=== PATIENT | male | born 1955 | race Two or more races ===

== ENCOUNTER 2018-08-12 11:47 | Inpatient (IN) | payer MEDICAID ==
[~2018-08-12] VITALS: Ht 177.8 cm; Wt 108.0 kg
[2018-08-12 11:47] VITALS: BP_SYST 131
[2018-08-12] MEDS ORDERED: ONDANSETRON HCL 4 MG/2 ML VIAL IVP ONE (12:00)
[2018-08-12] MEDS ORDERED: MORPHINE 4 MG/ML INJ. SYRINGE IVP ONE (12:00)
[2018-08-12] MEDS ORDERED: NACL 0.9% 1,000 ML IV ONE ×2 (12:00→15:15)
[2018-08-12 12:41] LABS: BASOPHILS % (AUTO) 0.3 % (0.0-2.0); EOSINOPHILS # (AUTO) 0.3 K/uL (0.0-0.4); EOSINOPHILS % (AUTO) 5.8 % (0.0-4.0); HEMATOCRIT 45.9 % (36-54); HEMOGLOBIN 14.7 g/dL (14.0-18.0); LYMPHOCYTES # (AUTO) 1.4 K/uL (1.0-5.5); LYMPHOCYTES % (AUTO) 25.7 % (20.5-51.5); MEAN CORPUSCULAR HEMOGLOBIN 27 pg (27-31); MEAN CORPUSCULAR HGB CONC 32 % (32-36); MEAN CORPUSCULAR VOLUME 84 fL (79.0-98.0); MONOCYTES # (AUTO) 0.3 K/uL (0.0-1.0); MONOCYTES % (AUTO) 6.1 % (1.7-9.3); NEUTROPHILS # (AUTO) 3.3 K/uL (1.8-7.7); NEUTROPHILS % (AUTO) 62.1 % (40.0-70.0); RED BLOOD CELL COUNT(AUTO) 5.44 MIL/uL (4.2-6.2); RED CELL DISTRIBUTION WIDTH 13.4 % (9.0-15.0); WHITE BLOOD COUNT (AUTO) 5.3 K/uL (4.8-10.8)
[2018-08-12] MEDS ORDERED: LIP20 PO (12:42)
[2018-08-12] MEDS ORDERED: HYDR25TA4 PO (12:42)
[2018-08-12] MEDS ORDERED: CYCL-10 PO (12:42)
[2018-08-12] MEDS ORDERED: SITA1TBM PO (12:42)
[2018-08-12] MEDS ORDERED: PERC10 PO (12:42)
[2018-08-12] MEDS ORDERED: PRO40 PO (12:42)
[2018-08-12] MEDS ORDERED: ERGO400T7 IJ (12:42)
[2018-08-12] MEDS ORDERED: FENO150C4 PO (12:42)
[2018-08-12] MEDS ORDERED: INSU100I26 SQ (12:42)
[2018-08-12] MEDS ORDERED: DULO60CA41 PO (12:42)
[2018-08-12] MEDS ORDERED: TRAM50TA2 PO (12:42)
[2018-08-12] MEDS ORDERED: LOSA50TA3 PO (12:42)
[2018-08-12] MEDS ORDERED: APIX5TAB PO (12:42)
[2018-08-12] MEDS ORDERED: NAPR-688 PO (12:42)
[2018-08-12] MEDS ORDERED: GABA-531 PO (12:42)
[2018-08-12] MEDS ORDERED: GLIP2.5T3 PO (12:42)
[2018-08-12] MEDS ORDERED: IBUP-1969 PO (12:42)
[2018-08-12 12:56] LABS: CALCIUM 8.9 mg/dL (8.4-11.0); CREATININE 1.23 mg/dL (0.55-1.30); POTASSIUM 3.6 mmol/L (3.5-5.1)
[2018-08-12 13:01] LABS: ALBUMIN 3.5 g/dL (3.4-4.8); TOTAL BILIRUBIN 0.4 mg/dL (0.0-1.0)
[2018-08-12 13:02] LABS: INR 1.1 (0.80-1.20); PROTHROMBIN TIME 11.3 SECS (9.5-12.5)
[2018-08-12 13:05] LABS: PLATELET COUNT (AUTO) 226 K/uL (130-430)
[2018-08-12 14:04] LABS: BILIRUBIN,URINE NEGATIVE (NEGATIVE); BLOOD, URINE NEGATIVE (NEGATIVE); CLARITY/URINE CLEAR (CLEAR); COLOR,URINE YELLOW (YELLOW); GLUCOSE,URINE 3+ (NEGATIVE); KETONES,URINE NEGATIVE (NEGATIVE); LEUKOCYTE ESTERASE ,URINE NEGATIVE (NEGATIVE); NITRITE, URINE NEGATIVE (NEGATIVE); PROTEIN URINE NEGATIVE (NEGATIVE); UROBILINOGEN,URINE 0.2 (0.2-1.0)
[2018-08-12] MEDS ORDERED: INSULIN REGULAR, HUMAN 10 UNITS/0.1 ML INJ IVP ONE (14:15)
[2018-08-12 14:16] LABS: BACTERIA,URINE RARE /HPF (None Seen); MUCUS,URINE 1+ /LPF (None Seen); RBC,URINE 0-3 /HPF (0-3); WBC,URINE 0-3 /HPF (0-3)
[2018-08-12] MEDS ORDERED: PANTOPRAZOLE SODIUM 40 MG/VIAL (PROTONIX) IVP ONE (15:15)
[2018-08-12 16:46] VITALS: BP_SYST 132
[2018-08-12] MEDS ORDERED: DEXTROSE 50% JECT 50 ML DISP.SYRIN IVP PRN (17:15)
[2018-08-12] MEDS ORDERED: traMADol HCL HCL 50 MG TABLET (ULTRAM) PO PRN (17:15)
[2018-08-12 19:15] VITALS: BP_SYST 127
[2018-08-12 19:52] LABS: CHOLESTEROL 138 mg/dL (<200); HDL CHOLESTEROL 26 mg/dL (>45); LDL CHOLESTEROL 101 mg/dL (<100); TRIGLYCERIDES 138 mg/dL (30-150)
[2018-08-12] MEDS: GABAPENTIN 300 MG CAPSULE PO SCH (20:18)
[2018-08-12] MEDS: OXYCODONE/ACETAMINOPHEN *10*mg/325 mg TABLET PO PRN (20:27)
[2018-08-12] MEDS: INSULIN REGULAR, HUMAN 100 UNITS/ML, 10 ML VIAL (novoLIN R) SUBCUT PRN ×2 (20:34→23:48)
[2018-08-13 00:43] VITALS: BP_SYST 117
[2018-08-13] MEDS: ATORVASTATIN 20 MG TABLET PO SCH (08:01)
[2018-08-13] MEDS: HYDROCHLOROTHIAZIDE 25 MG TABLET (HCTZ) PO SCH (08:01)
[2018-08-13] MEDS: PANTOPRAZOLE SODIUM 40 MG TAB PO SCH (08:01)
[2018-08-13] MEDS: ASPIRIN 81 MG TAB.CHEW PO SCH (08:01)
[2018-08-13] MEDS: CYCLOBENZAPRINE HCL 10 MG TABLET (FLEXERIL) PO SCH (08:02)
[2018-08-13] MEDS: LOSARTAN POTASSIUM 50 MG TABLET (COZAAR) PO SCH (08:02)
[2018-08-13] MEDS: DULoxetine HCL 30 MG CAPSULE.DR (CYMBALTA) PO SCH (08:02)
[2018-08-13 08:04] VITALS: BP_SYST 120
[2018-08-13] MEDS: OXYCODONE/ACETAMINOPHEN *10*mg/325 mg TABLET PO PRN (08:09)
[2018-08-13] MEDS: glipiZIDE XL 2.5 MG/TAB (GLUCOTROL XL) PO SCH (08:47)
[2018-08-13] MEDS: INSULIN REGULAR, HUMAN 100 UNITS/ML, 10 ML VIAL (novoLIN R) SUBCUT PRN ×3 (11:28→23:22)
[2018-08-13 12:58] VITALS: BP_SYST 154
[2018-08-13 17:03] VITALS: BP_SYST 118
[2018-08-13] MEDS: GABAPENTIN 300 MG CAPSULE PO SCH (18:11)
[2018-08-13 19:52] VITALS: BP_SYST 143
[2018-08-13 23:15] VITALS: BP_SYST 130
[2018-08-14] MEDS: INSULIN REGULAR, HUMAN 100 UNITS/ML, 10 ML VIAL (novoLIN R) SUBCUT PRN (06:43)
[2018-08-14 08:00] VITALS: BP_SYST 141
[2018-08-14] MEDS: ATORVASTATIN 20 MG TABLET PO SCH (08:26)
[2018-08-14] MEDS: DULoxetine HCL 30 MG CAPSULE.DR (CYMBALTA) PO SCH (08:27)
[2018-08-14] MEDS: PANTOPRAZOLE SODIUM 40 MG TAB PO SCH (08:27)
[2018-08-14] MEDS: CYCLOBENZAPRINE HCL 10 MG TABLET (FLEXERIL) PO SCH (08:29)
[2018-08-14] MEDS: ASPIRIN 81 MG TAB.CHEW PO SCH (08:29)
[2018-08-14] MEDS: HYDROCHLOROTHIAZIDE 25 MG TABLET (HCTZ) PO SCH (08:29)
[2018-08-14] MEDS: LOSARTAN POTASSIUM 50 MG TABLET (COZAAR) PO SCH (08:29)
[2018-08-14] MEDS: glipiZIDE XL 2.5 MG/TAB (GLUCOTROL XL) PO SCH (08:30)
[2018-08-14] MEDS ORDERED: PRO40 PO (09:58)
[2018-08-14 10:33] VITALS: BP_SYST 141
== END 2018-08-14 11:05 | disposition home or self-care (01) | DRG 243 ==
LOC: SED 11:47 → STU 16:01
PROVIDERS: ADMIT Internal Medicine Hospice and Palliative Medicine; ATTEND Internal Medicine Hospice and Palliative Medicine
DX: K21.9 Gastro-esophageal reflux disease without esophagitis (principal); E11.65 Type 2 diabetes mellitus with hyperglycemia; I48.0 Paroxysmal atrial fibrillation; R07.89 Other chest pain; I25.10 Atherosclerotic heart disease of native coronary artery without angina pectoris; R13.10 Dysphagia, unspecified; E11.9 Type 2 diabetes mellitus without complications; I10 Essential (primary) hypertension; G89.4 Chronic pain syndrome; K64.9 Unspecified hemorrhoids; Z87.891 Personal history of nicotine dependence; Z79.899 Other long term (current) drug therapy; Z90.49 Acquired absence of other specified parts of digestive tract; Z82.49 Family history of ischemic heart disease and other diseases of the circulatory system
CPT/HCPCS: 36415; 71045; 76700-TC; 80053; 80061; 81000-TC; 82550-TC; 82962; 83605; 83690-TC; 84484; 85025; 85610-TC; 85730-TC; 87040-TC; 87086; 90656; 93005; 93306; 96361; 96374; 96375; 99285; C9113; J1815; J2270; J2405; J7030

== ENCOUNTER 2020-04-25 13:16 | Inpatient (IN) | payer MEDICAID ==
[~2020-04-25] VITALS: Ht 177.8 cm; Wt 109.6 kg
[~2020-04-25 13:16] MED LIST: APIX5TAB PO; CYCL-10 PO; DULO60CA41 PO; ERGO400T7 IJ; FENO150C4 PO; GABA-531 PO; GLIP2.5T3 PO; HYDR25TA4 PO; IBUP-1969 PO; INSU100I26 SQ; LIP20 PO; LOSA50TA3 PO; PERC10 PO; PRO40 PO; SITA1TBM PO; TRAM50TA2 PO
[2020-04-25 13:40] VITALS: BP_SYST 151
[2020-04-25 14:19] LABS: BASOPHILS # (AUTO) 0.1 K/uL (0.0-0.2); EOSINOPHILS # (AUTO) 0.2 K/uL (0.0-0.4); EOSINOPHILS % (AUTO) 3.3 % (0.0-4.0); HEMATOCRIT 43.1 % (36-54); HEMOGLOBIN 14.1 g/dL (14.0-18.0); LYMPHOCYTES # (AUTO) 1.7 K/uL (1.0-5.5); LYMPHOCYTES % (AUTO) 27.4 % (20.5-51.5); MEAN CORPUSCULAR HEMOGLOBIN 26 pg (27-31); MEAN CORPUSCULAR HGB CONC 33 % (32-36); MEAN CORPUSCULAR VOLUME 80 fL (79.0-98.0); MONOCYTES # (AUTO) 0.5 K/uL (0.0-1.0); MONOCYTES % (AUTO) 8.3 % (1.7-9.3); NEUTROPHILS # (AUTO) 3.8 K/uL (1.8-7.7); PLATELET COUNT (AUTO) 191 K/uL (130-430); RED BLOOD CELL COUNT(AUTO) 5.37 MIL/uL (4.2-6.2); RED CELL DISTRIBUTION WIDTH 16.3 % (9.0-15.0); WHITE BLOOD COUNT (AUTO) 6.4 K/uL (4.8-10.8)
[2020-04-25 14:30] LABS: CALCIUM 9.3 mg/dL (8.4-11.0); CREATININE 1.18 mg/dL (0.55-1.30); POTASSIUM 3.9 mmol/L (3.5-5.1)
[2020-04-25] MEDS ORDERED: D5/0.45 NS 1,000 ML IV ONE (14:30)
[2020-04-25 14:36] LABS: ALBUMIN 3.9 g/dL (3.4-4.8); TOTAL BILIRUBIN 0.5 mg/dL (0.0-1.0)
[2020-04-25] MEDS ORDERED: OXYCODONE/ACETAMINOPHEN *10*mg/325 mg TABLET PO PRN (19:45)
[2020-04-25] MEDS ORDERED: traMADol HCL HCL 50 MG TABLET (ULTRAM) PO PRN (19:45)
[2020-04-25] MEDS: PANTOPRAZOLE SODIUM 40 MG TAB PO SCH (20:39)
[2020-04-25] MEDS: D10W 1,000 ML IV SCH (20:49)
[2020-04-26] MEDS: D10W 1,000 ML IV SCH (04:45)
[2020-04-26 04:51] VITALS: BP_SYST 141
[2020-04-26 08:00] VITALS: BP_SYST 140
[2020-04-26] MEDS ORDERED: ATORVASTATIN 20 MG TABLET PO SCH (09:00)
[2020-04-26] MEDS ORDERED: HYDROCHLOROTHIAZIDE 25 MG TABLET (HCTZ) PO SCH (09:00)
[2020-04-26] MEDS ORDERED: LOSARTAN POTASSIUM 50 MG TABLET (COZAAR) PO SCH (09:00)
[2020-04-26] MEDS ORDERED: DULoxetine HCL 30 MG CAPSULE.DR (CYMBALTA) PO SCH (09:00)
[2020-04-26] MEDS: PANTOPRAZOLE SODIUM 40 MG TAB PO SCH (09:02)
[2020-04-26 12:00] VITALS: BP_SYST 112
[2020-04-26 16:00] VITALS: BP_SYST 150
[2020-04-26 17:14] VITALS: BP_SYST 140
[2020-04-26] MEDS ORDERED: GABAPENTIN 300 MG CAPSULE PO SCH (18:00)
== END 2020-04-26 18:15 | disposition home or self-care (01) | DRG 812 ==
LOC: SED 13:16 → SIC 18:45 → STU 04-26 04:01 → SMU 04-26 12:50
PROVIDERS: ADMIT Internal Medicine Hospice and Palliative Medicine; ATTEND Internal Medicine Hospice and Palliative Medicine
DX: T38.3X1A Poisoning by insulin and oral hypoglycemic [antidiabetic] drugs, accidental (unintentional), initial encounter (principal); I10 Essential (primary) hypertension; E11.649 Type 2 diabetes mellitus with hypoglycemia without coma; I48.91 Unspecified atrial fibrillation; E78.5 Hyperlipidemia, unspecified; Z79.899 Other long term (current) drug therapy; Z79.84 Long term (current) use of oral hypoglycemic drugs; Y92.89 Other specified places as the place of occurrence of the external cause
CPT/HCPCS: 36415; 80053; 82962; 83036; 85025; 93005; 96360; 96361; 99285

== ENCOUNTER 2020-11-25 17:00 | Emergency (ER) | payer MEDICAID ==
[~2020-11-25] VITALS: Ht 177.8 cm; Wt 109.8 kg
[~2020-11-25 17:00] MED LIST changes: -GLIP2.5T3 PO; -INSU100I26 SQ
--- NOTE | 2020-11-25 17:08 | NUR ---
Patient to ER bed 05 to gown for evaluation. Side rails up.
[2020-11-25 17:12] VITALS: BP_SYST 155
--- NOTE | 2020-11-25 17:15 | NUR ---
ER DR. HER AT THE BEDSIDE EVALUATING PT
--- NOTE | 2020-11-25 17:20 | NUR ---
PT CAME INTO ER WITH CO URINARY RETENTION AND PAINFUL URINATION X 3 DAYS. PT PRESENTS DIAPHORETIC AND ABLE TO URINATE A SMALL AMOUNT INTO A URINAL. HE IS AAOX4, V/S STABLE
--- NOTE | 2020-11-25 17:36 | NUR ---
LAB AT THE BEDSIDE FOR BLOOD DRAW
--- NOTE | 2020-11-25 17:44 | NUR ---
# 16 FR Childers catheter with use of sterile technique. Immediate return of 10 cc CLEAR, YELLOW urine noted. Bedside drainage bag placed below level of bladder. Urine sample collected and sent to lab. Pt tolerated procedure WELL. Patient unable to toilet self.
[2020-11-25 17:57] LABS: BASOPHILS # (AUTO) 0.1 K/uL (0.0-0.2); BASOPHILS % (AUTO) 0.8 % (0.0-2.0); EOSINOPHILS # (AUTO) 0.2 K/uL (0.0-0.4); EOSINOPHILS % (AUTO) 3.4 % (0.0-4.0); HEMOGLOBIN 12.9 g/dL (14.0-18.0); LYMPHOCYTES # (AUTO) 1.1 K/uL (1.0-5.5); LYMPHOCYTES % (AUTO) 14.8 % (20.5-51.5); MEAN CORPUSCULAR HEMOGLOBIN 27 pg (27-31); MEAN CORPUSCULAR HGB CONC 33 % (32-36); MEAN CORPUSCULAR VOLUME 82 fL (79.0-98.0); MONOCYTES # (AUTO) 0.7 K/uL (0.0-1.0); MONOCYTES % (AUTO) 9.1 % (1.7-9.3); NEUTROPHILS # (AUTO) 5.2 K/uL (1.8-7.7); NEUTROPHILS % (AUTO) 71.9 % (40.0-70.0); PLATELET COUNT (AUTO) 197 K/uL (130-430); RED BLOOD CELL COUNT(AUTO) 4.77 MIL/uL (4.2-6.2); RED CELL DISTRIBUTION WIDTH 15.1 % (9.0-15.0); WHITE BLOOD COUNT (AUTO) 7.3 K/uL (4.8-10.8)
[2020-11-25 18:02] LABS: BILIRUBIN,URINE NEGATIVE (NEGATIVE); BLOOD, URINE NEGATIVE (NEGATIVE); CLARITY/URINE CLEAR (CLEAR); COLOR,URINE YELLOW (YELLOW); GLUCOSE,URINE NEGATIVE (NEGATIVE); KETONES,URINE NEGATIVE (NEGATIVE); LEUKOCYTE ESTERASE ,URINE TRACE (NEGATIVE); NITRITE, URINE NEGATIVE (NEGATIVE); PROTEIN URINE NEGATIVE (NEGATIVE); UROBILINOGEN,URINE 0.2 (0.2-1.0)
[2020-11-25 18:16] LABS: PROTHROMBIN TIME 10.3 SECS (9.5-12.5)
[2020-11-25 18:17] LABS: ALBUMIN 4.1 g/dL (3.4-4.8); CALCIUM 9.2 mg/dL (8.4-11.0); CREATININE 1.57 mg/dL (0.55-1.30); POTASSIUM 4.3 mmol/L (3.5-5.1); TOTAL BILIRUBIN 0.9 mg/dL (0.0-1.0)
[2020-11-25 18:20] LABS: BACTERIA,URINE FEW /HPF (None Seen); MUCUS,URINE None Seen /LPF (None Seen)
--- NOTE | 2020-11-25 18:34 | NUR ---
HARRIS BAG EMPTIED 1200ML CLEAR YELLOW URINE REMOVED
--- NOTE | 2020-11-25 18:35 | NUR ---
HARRIS CATH REMOVED, PT ABLE TO VOID IMMEDIATELY AFTER 20ML CLEAR YELLOW URINE. TOLERATED WELL
[2020-11-25 18:45] VITALS: BP_SYST 155
--- NOTE | 2020-11-25 18:46 | NUR ---
Patient given written and verbal discharge instructions and verbalizes understanding. ER MD discussed with patient the results and treatment provided. Patient in stable condition. ID arm band removed. Patient educated on pain management and to follow up with PMD. Pain Scale 0/10. Opportunity for questions provided and answered. Medication side effect fact sheet provided.
== END 2020-11-25 18:45 | disposition home or self-care (01) ==
LOC: SED 17:00
DX: R33.9 Retention of urine, unspecified (principal); I10 Essential (primary) hypertension; E11.9 Type 2 diabetes mellitus without complications; Z79.899 Other long term (current) drug therapy
CPT/HCPCS: 36415; 80053; 81000-TC; 82150-TC; 83605; 83690-TC; 85025; 85610-TC; 85730-TC; 87086; 99284

== ENCOUNTER 2021-10-23 21:17 | Emergency (ER) | payer MEDICAID, SELFPAY ==
[~2021-10-23] VITALS: Ht 177.8 cm; Wt 111.1 kg
[~2021-10-23 21:17] MED LIST changes: -CYCL-10 PO; +CYCL10TA24 PO; -DULO60CA41 PO; +DULO60CA42 PO
--- NOTE | 2021-10-23 21:29 | NUR ---
pt started with fever and chills today this morning. pt has no apetite. pt has shivers occassionally and no body ahes. pt also has high bp but took his home med [employer].
[2021-10-23 21:33] VITALS: BP_SYST 148
--- NOTE | 2021-10-23 21:46 | NUR ---
covid swab obtained and sent to lab
--- NOTE | 2021-10-23 22:10 | NUR ---
ER examining patient in the tent.
[2021-10-23 22:48] VITALS: BP_SYST 148
--- NOTE | 2021-10-23 22:54 | NUR ---
pt given d/c instructions and present. pt ambulated well to own car and pt verbalized understanding of d/c instructions.
== END 2021-10-23 22:54 | disposition home or self-care (01) ==
LOC: SED 21:17
DX: U07.1 COVID-19 (principal); M79.18 Myalgia, other site; I10 Essential (primary) hypertension; E11.9 Type 2 diabetes mellitus without complications; Z79.899 Other long term (current) drug therapy
CPT/HCPCS: 36415; 99283

== ENCOUNTER 2022-06-03 03:08 | Emergency (ER) | payer MEDICAID ==
[~2022-06-03] VITALS: Ht 177.8 cm; Wt 90.7 kg
[2022-06-03 03:30] VITALS: BP_SYST 109
--- NOTE | 2022-06-03 03:45 | NUR ---
PT FROM HOME WITH C/O OF RASH ON THE BILATERAL UPPER EXTREMITIES. PT STATES THE RASH STARTED 3 DAYS AGO AND HAS GOTTEN WORSE. PT STATES HE HAS BEEN USING OTC MEDICATION TO MANAGE, DOES NOT KNOW THE NAME. PT HAS HX OF A-FIB, DM , HTN, AND ARTHRITIS.
--- NOTE | 2022-06-03 03:55 | NUR ---
Patient to ER bed 02 to gown for evaluation. Side rails up. Report given to Jose L JAVED.
--- NOTE | 2022-06-03 04:27 | NUR ---
PT IS AA&OX4. DENIES PAIN, NAD, NOTED W/ GENERALIZED BODY RASH. AFEBRILE. PER PT, HE REMEMBERS NOW THAT HE TAKES CLARITIN FOR HIS RASH. AWAITING TO BE SEEN BY .
[2022-06-03 05:51] VITALS: BP_SYST 109
--- NOTE | 2022-06-03 05:52 | NUR ---
Patient left without being seen.
== END 2022-06-03 05:51 | disposition left against medical advice (07) ==
LOC: SED 03:08
DX: R21 Rash and other nonspecific skin eruption (principal); Z53.21 Procedure and treatment not carried out due to patient leaving prior to being seen by health care provider

== ENCOUNTER 2022-10-22 06:35 | Day surgery (SDC) | payer MEDICARE, MEDICAID ==
[~2022-10-22] VITALS: Ht 177.8 cm; Wt 104.3 kg
[2022-10-22] MEDS ORDERED: SIMETHICONE 40 MG/0.6 ML ML ONE (06:40)
[2022-10-22] MEDS: fentaNYL CITRATE/PF 100 MCG/2 ML AMP ONE ×2 (07:48→07:51)
[2022-10-22] MEDS: MIDAZOLAM HCL 5 MG/5 ML VIAL ONE ×2 (07:48→07:51)
[2022-10-22 14:01] VITALS: BP_SYST 129
== END 2022-10-22 09:10 | disposition home or self-care (01) ==
LOC: SDS 06:35 → SMU 06:36 → SDS 09:10
PROVIDERS: ATTEND Internal Medicine
DX: R19.4 Change in bowel habit (principal); D12.0 Benign neoplasm of cecum; D12.2 Benign neoplasm of ascending colon; D12.3 Benign neoplasm of transverse colon; D12.4 Benign neoplasm of descending colon; K29.50 Unspecified chronic gastritis without bleeding; K64.8 Other hemorrhoids; R13.10 Dysphagia, unspecified; Z86.010 Personal history of colon polyps; I10 Essential (primary) hypertension; E11.9 Type 2 diabetes mellitus without complications; Z90.49 Acquired absence of other specified parts of digestive tract; Z20.822 Contact with and (suspected) exposure to COVID-19; Z79.899 Other long term (current) drug therapy
CPT/HCPCS: 36415 ×2; 45380; 45385; 43239; 87426; 87081; 82962; 88305; 88312; 88313; 99152; 99153; U0003; J2250; J3010; J7030